=== PATIENT | female | born 1980 | race Caucasian/White ===

== ENCOUNTER 2023-02-16 07:59 | Emergency (ER) | payer OTHER ==
[~2023-02-16] VITALS: Ht 157.5 cm; Wt 50.4 kg
[2023-02-16] MEDS ORDERED: Vitamins (08:14)
[2023-02-16] MEDS ORDERED: ADDE20TA PO (08:14)
[2023-02-16] MEDS ORDERED: WELLTAB38 PO (08:14)
[2023-02-16] MEDS ORDERED: ADDE25CA PO (08:14)
[2023-02-16] MEDS ORDERED: IBUP80TA PO (09:16)
[2023-02-16 09:28] VITALS: BP 124/87; TEMP 99; O2SAT 97
== END 2023-02-16 09:48 | disposition home or self-care (01) ==
LOC: M ED 07:59
DX: S30.0XXA Contusion of lower back and pelvis, initial encounter (principal); W10.8XXA Fall (on) (from) other stairs and steps, initial encounter; Z87.891 Personal history of nicotine dependence; Z79.1 Long term (current) use of non-steroidal anti-inflammatories (NSAID); Z79.899 Other long term (current) drug therapy